=== PATIENT | male | born 1950 | race Caucasian/White ===

== ENCOUNTER 2023-07-13 10:48 | Emergency (ER) | payer BC ==
[~2023-07-13] VITALS: Ht 180.3 cm; Wt 108.9 kg
[2023-07-13] MEDS ORDERED: GRALISE600 MG PO (11:04)
[2023-07-13] MEDS ORDERED: ATORVASTATIN CA20 MG PO (11:05)
[2023-07-13] MEDS ORDERED: OMEPRAZOLE-BIC1 EAC1 PO (11:05)
== END 2023-07-13 11:54 | disposition home or self-care (01) ==
LOC: ER 10:49
DX: S80.811A Abrasion, right lower leg, initial encounter (principal); X58.XXXA Exposure to other specified factors, initial encounter; Y93.89 Activity, other specified; Y92.832 Beach as the place of occurrence of the external cause; Y99.9 Unspecified external cause status